=== PATIENT | male | born 1955 | race Caucasian/White ===

== ENCOUNTER → 2023-06-04 10:03 | Outpatient (REF) | payer MEDICARE, SELFPAY | LOC: HWRAD 10:03 | PROVIDERS: ATTENDING PHYSICIAN Internal Medicine Rheumatology; FAMILY PHYSICIAN Family Medicine | DX: M17.10 Unilateral primary osteoarthritis, unspecified knee (principal) | CPT/HCPCS: 73562; 73565 ==

== ENCOUNTER → 2024-05-06 06:33 | Day surgery (SDC) | payer MEDICARE, SELFPAY | LOC: GI 06:33 | PROVIDERS: ATTENDING PHYSICIAN Internal Medicine | PROC: 0DBL8ZX Excision of Transverse Colon, Via Natural or Artificial Opening Endoscopic, Diagnostic (ICD-10-PCS; 2024-05-06) | PROC: 0DBH8ZX Excision of Cecum, Via Natural or Artificial Opening Endoscopic, Diagnostic (ICD-10-PCS; 2024-05-06) | DX: Z12.11 Encounter for screening for malignant neoplasm of colon (principal); Z86.0101 Personal history of adenomatous and serrated colon polyps; K64.9 Unspecified hemorrhoids; D12.3 Benign neoplasm of transverse colon; K57.30 Diverticulosis of large intestine without perforation or abscess without bleeding | CPT/HCPCS: 45380; 88305 ==

== ENCOUNTER 2024-07-03 18:52 | Inpatient (IN) | payer MEDICARE, SELFPAY ==
[2024-07-03] VITALS (23 sets, daily range): BP systolic 72–106; BP diastolic 57–67; BMI 22.6; BMI 21.9
--- NOTE | 2024-07-03 17:30 | ED.GENMED ---
History of Present Illness
General
Chief Complaint: Chest Pain
Time Seen by Provider: 07/03/24 17:30
History of Present Illness
History of Present Illness:
69-year-old male with history of hyperlipidemia and high calcium score presenting for concern of STEMI. Patient reports he was mountain biking at 4 PM when he had acute onset of midsternal chest pain with radiation to his back. He stopped
bicycling and called the ambulance. On medics arrival, did a twelve-lead which showed a STEMI, prehospital notification. Aspirin administered and route. On arrival, patient notes persistent chest pain, 5 out of 10 and some dyspnea. Pain is
described as a dull ache. Denies fever or recent illness. Denies additional acute medical complaints.
Phy Exam
Physical Exam
Physical Exam:
General: Well-appearing, no clinical signs of dehydration, nontoxic and in no acute distress
HEENT: protecting airway
Neck: appears supple
CV: Normal heart rate, regular rhythm
Resp: No accessory muscle use, no increased work of breathing, lungs clear to auscultation bilaterally
Abd: No distention
Extremities: No deformities, no swelling
Neuro: alert, no focal neurologic deficit
: deferred
Rectal: deferred
Psych: Normal affect
Skin: Intact
Scores
Heart Score for Chest Pain Patients
STEMI patient?: Yes
Course
Orders/Labs/Results
Orders:
Orders
07/03/24 17:25
Electrocardiogram (*1) Urgent
Reason for Study: Chest Pain
Cardiac Monitoring- Treatment ONCE
EKG- Treatment ONCE
IV Insert/Care/Rem.- Treatment PRN
O2 Therapy [RESP] Urgent
Titrate/Wean O2 to maintain O2 sat greater than (%): 90
Special Instructions: Maintain sats >/=90%
Pulse Ox/spot Check [RESP] Urgent
Quantity: 1
Special Instructions: ON ROOM AIR
07/03/24 17:31
Complete Blood Count/With Diff Urgent
Comprehensive Metabolic Panel Urgent
Troponin I Urgent
07/03/24 18:28
Heparin 5,000 units .ROUTE .STK-MED ONE
Ticagrelor [Brilinta] 180 mg .ROUTE .STK-MED ONE
07/03/24 18:36
CT Chest Angio W/wo Iv Contras Stat
Comment:
Reason For Exam: Chest pain exclude dissection
07/03/24 18:45
Admit Patient As Directed
Co-Sign Provider:
Level of Care: Inpatient admission
Assign to:: ICU
Physician / Group: Dr. Camargo
Diagnosis: SCAD
Reason for Hospitalization: Chest pain and abnormal ECG
Expected length of stay greater than two midnights?: Yes
ELOS- Estimated Length of Stay in days: 3
I certify the patient meets the requirements for IP care: Yes
Code Status As Directed
Resuscitation Status: Full Code
Activity As Directed
Activity Level: Out of Bed- Ad Venecia
Activity Frequency: Ad Venecia
Printmaker Procedure As Directed
Cardiac Cath Procedure: cardiac catheterization
Notify MD As Directed
Notify physician if: immediately for chest pain or bleeding from access site(s)
Radial Artery Hemostasis Method As Directed
Instructions:: 3 mL out at 1 hour post placement of band
3 mL out at 1 1/2 hours post placement of band
3 mL out at 2 hours post placement of band
Off at 2 1/2 hours post placement of band
If any oozing or hemotoma occurs:: re-inflate band and call provider
Site Checks As Directed
Check access site for bleeding/hematoma: Yes
Comment: on arrival, Q15min x4, Q30min x2, Q1 hr x2, Q2 hr x2, Q4 hr or per
protocol
Vascular Checks As Directed
Location: distal to access site - pulse check
Frequency: Other
Comment: on arrival, Q15min x4, Q30min x2, Q1 hr x2, Q2 hr x2, Q4 hr or per protocol
Vital Signs As Directed
Frequency: Other
Additional Instructions:: on arrival, Q15min x4, Q30min x2, Q1 hr x2, Q2 hr x2, then Q4 hr or per unit
protocol
07/03/24 18:46
PRN Pain Medication Management As Directed
May give lesser potent ordered pain med per pt: Yes
preference::
Protocol:: Medication orders for pain may be administered in a
manner that supports deferring to patient preference
when the pt is:
- Requesting an ordered lesser potent pain medication.
Least to most potent pain medications are defined
as: acetaminophen < NSAID < tramadol < opioids
(morphine, oxycodone, hydromorphone).
- Requesting a lesser dose of the same medication IF
ORDERED.
- Requesting a less intrusive route of administration
if both routes are prescribed by the provider (PO <
IV).
07/03/24 18:47
DX Deep Vein Thrombosis Video Routine
07/03/24 19:43
Troponin I Q6H
07/04/24 00:45
Troponin I Q6H
07/04/24 06:00
Basic Metabolic Panel IN AM
Cardiovascular Evaluation IN AM
Complete Blood Count/No Diff IN AM
07/04/24 06:45
Troponin I Q6H
07/04/24 12:45
Troponin I Q6H
07/04/24 18:00
Enoxaparin Sodium [Lovenox] 40 mg SC QPM
Abnormal Lab Results
07/03/24 07/03/24
17:31 17:49
WBC 12.8 H 10^3/uL
(4.8-10.8)
RBC 4.63 L 10^6/uL
(4.70-6.10)
MCV 97.4 H fL
(80.0-94.0)
MCH 33.3 H pg
(27.0-31.0)
MPV 11.6 H fL
(7.4-10.4)
Abs Immat Gran (auto) 0.1 H 10^3/uL
(0-0.05)
Absolute Neuts (auto) 10.2 H 10^3/uL
(1.4-6.5)
Absolute Monos (auto) 1.0 H 10^3/uL
(0.1-0.6)
Neutrophils % 79.5 H %
(42.2-75.2)
Lymphocytes % 11.6 L %
(20.5-51.1)
BUN 33 H mg/dl
(9-20)
Glucose 109 H mg/dl
(70-99)
AST 78 H U/L
(17-59)
Troponin I 4.030 H* ng/ml
POC ACT Low Range 221 H Seconds
(116-155)
07/03/24 17:31
07/03/24 17:31
Vital Signs
Initial and Last Documented VS:
Initial Vital Signs
Temp Pulse Resp BP Pulse Ox
97.6 F 68 20 105/66 98
07/03/24 17:26 07/03/24 17:26 07/03/24 17:26 07/03/24 17:26 07/03/24 17:26
Last Documented Vital Signs
Temp Pulse Resp BP Pulse Ox
97.6 F 64 20 105/66 97
07/03/24 17:26 07/03/24 17:31 07/03/24 17:30 07/03/24 17:31 07/03/24 17:31
MDM/Problems Addressed
MDM/Problems Addressed:
69-year-old male with history of hyperlipidemia presenting to the emergency department for chest pain. Vital signs are normal.
Patient is a prehospital STEMI alert, with EKG transmitted to the emergency department, consistent with STEMI. STEMI alert subsequently called with cardiology to bedside upon patient's arrival. Patient hemodynamically stable upon arrival, EKG
repeated, consistent with STEMI, with inferior and lateral ST elevations. Patient received aspirin and route. Plan for heparin and Brilinta and cardiac catheterization. Patient to be admitted.
*EKG
Interpreted by ED Provider?: Yes
EKG Intrepretation Date: 07/03/24
EKG Intrepretation Time: 17:47
Interpretation: abnormal
Heart Rate: 73
Rate: normal
Rhythm: sinus
[place]: left axis deviation
Interval: normal interval
QRS Pattern: normal QRS
Ischemia: ST elevation
*Critical Care Note
Total Time (30-74mins, 75-104mins- exclusive of procedures): Not Applicable
ED Attending Note
-
Portions of this chart may have been created with voice recognition software.� Occasional wrong word or��sound alike� substitutions may have occurred due to the inherent limitations of voice recognition software.
Discharge Plan
Departure
Patient Disposition: Admit
Date of Disposition: 07/03/24
Time of Disposition: 17:46
Presentation/result/management discussed w/ accepting MD/DO: cardiology Teena Ragland
Condition: Critical
Discharge Problem:
ST elevation (STEMI) myocardial infarction
Interventions
Interventions:
*Risk Screen - Suicide Last Done: 07/03/24 19:31
*General Assessment Last Done: 07/03/24 17:36
*Neglect/Abuse Screening Last Done: 07/03/24 17:25
*ED- Fall Risk Assessment Last Done: 07/03/24 17:25
*ED COVID-19 Vaccine History Last Done: 07/03/24 19:31
*Nursing Disposition Last Done: 07/03/24 17:43
ED- Cardiac Assessment Last Done: 07/03/24 17:25
Discharge Date and Time
Discharge Date/Time: 07/03/24 17:45
[2024-07-03 17:38] LABS: % Basophils 0.5 % (0-2); % Eosinophils 0.2 % (0-6); % Immature Granulocytes 0.5 % (0-0.5); % Lymphocytes 11.6 % (20.5-51.1); % Monocytes 7.7 % (1.7-9.3); % Neutrophils 79.5 % (42.2-75.2); Absolute Basophils 0.1 10^3/uL (0-0.2); Absolute Immature Granulocytes 0.1 10^3/uL (0-0.05); Absolute Lymphocytes 1.5 10^3/uL (1.2-3.4); Absolute Neutrophils 10.2 10^3/uL (1.4-6.5); Hematocrit 45.1 % (39.0-52.0); Hemoglobin 15.4 g/dL (13.0-18.0); Mean Corp Hgb Conc. 34.1 g/dL (33.0-37.0); Mean Corpuscular Hgb 33.3 pg (27.0-31.0); Mean Corpuscular Volume 97.4 fL (80.0-94.0); Mean Platelet Volume 11.6 fL (7.4-10.4); Nucleated Red Blood Cells % 0 % (-); Platelet Count 161 10^3/uL (130-400); Red Blood Cell Count 4.63 10^6/uL (4.70-6.10); White Blood Cell Count 12.8 10^3/uL (4.8-10.8)
[2024-07-03 17:54] LABS: ALT (SGPT) 41 U/L (0-50); AST (SGOT) 78 U/L (17-59); Albumin 4.6 g/dl (3.5-5.0); Alkaline Phosphatase 65 U/L (38-126); Blood Urea Nitrogen 33 mg/dl (9-20); Calcium 9.9 mg/dl (8.4-10.2); Carbon Dioxide 22 mmol/L (22-30); Chloride 102 mmol/L (98-107); Estimated Creatinine Clearance 77 ml/min; Glucose 109 mg/dl (70-99); Potassium 3.8 mmol/L (3.5-5.1); Sodium 137 mmol/L (135-145); Total Bilirubin 1.1 mg/dl (0.2-1.3); Total Protein 6.9 g/dl (6.3-8.2); eGFR > 60.00
[2024-07-03 17:54] LABS: ACT-LR - POC 221 Seconds (116-155)
--- NOTE | 2024-07-03 19:02 | ITS.CL.CATH ---
Laminating Machine Offbearer - Catheterization
Cardiac Catheterization
Procedure Report:
LEFT HEART CATHETERIZATION
Date of Procedure: July 03, 2024
Referring: [facility] Emergency Department
PROCEDURES:
1. Left heart catheterization with coronary and single-plane left ventriculography
2. Right heart catheterization
INDICATION: This is a 69-year-old gentleman with a past medical history notable for an elevated coronary calcium score and connective tissue disorder. He is an avid mountain biker and had been riding his mountain bike earlier today when he noticed
the onset of substernal chest tightness leading him to seek medical attention. His prehospital electrocardiogram was notable for 3 to 4 mm of inferior and anterolateral ST segment elevation and a prehospital STEMI alert was activated. Upon arrival
the patient continued to experience chest tightness graded 5-8/10 in intensity. He received a 180 mg loading dose of ticagrelor as well as aspirin 324 mg on top of his 81 mg daily dose of aspirin. He is now referred for emergent coronary
angiography.
ACCESS: Right radial artery, 6 Marshall[place] sheath
HEMODYNAMICS : (mmHg)
AO (s/d) : 83/46, 61
LV (s/d) : 85/16
LVEDP : 23
CORONARY FINDINGS
DOMINANCE: Right
LEFT MAIN: Hazy 50% distal left main stenosis
LEFT ANTERIOR DESCENDING: The LAD arises normally from the left main and runs in the anterior interventricular groove. The LAD has a tandem 50 and 60% stenoses in the mid LAD just proximal and just distal to a large first septal lining cementer.
Several small diagonal branches arise from the mid LAD in the apical LAD tapers to a very small caliber vessel. There is SILVERIO-3 flow into the distal vessel.
CIRCUMFLEX: The circumflex is a medium caliber nondominant vessel giving rise to a very small OM1 and terminates in a small to medium caliber OM 2 and OM 3. There is SILVERIO-3 flow into the distal vessel.
RIGHT CORONARY ARTERY: The right coronary artery is a large-caliber dominant vessel that has a 30% mid stenosis. The PDA has an unusual hinge point in the mid vessel where a 50% stenosis is noted. Distally the PDA tapers to a very small caliber
vessel with possible angiographic appearance suggestive of possible type II SCAD/spontaneous coronary artery dissection. The posterolateral branch is large and has minor irregularities.
VENTRICULOGRAPHY: Left ventriculography is performed in an BERG projection. The digital single-plane left ventricular ejection fraction is estimated at 60% with possible inferoapical hypokinesis
RIGHT HEART CATHETERIZATION: Right heart catheterization was performed at conclusion of the diagnostic angiogram because patient complaining of severe shortness of breath.
Hemodynamics (mmHg):
RA (m) : 16
RV (s/d,m) : 53/16, 19
PA (s/d, m) : 32/24, 27
PCWP (m) : 25
AO (s/d) : 96/55, 70
Cardiac Output : 3.75 L/min and Cardiac Index : 2.18 L/min/m-2
SEDATION: 45 minutes of procedural sedation was utilized. An independent manager medical writing was present to assist with and help manage the patient's level of consciousness and physiologic status.
RADIATION SUMMARY: Fluoro Time (min): 5.6, Dose (mGy): 242, DAP (Gy.cm2) : 20.5
Closure Device: TR band and manual pressure over right femoral venous access
CONCLUSIONS
1. Electrocardiogram suggestive of an evolving inferior and anterolateral wall myocardial infarction although angiographically it is difficult to define a clear epicardial coronary vessel occlusion. The PDA tapers distally with an angiographic
appearance consistent with type II SCAD which may be the etiology of his chest discomfort
2. Preserved LV systolic function with inferoapical hypokinesis
RECOMMENDATIONS
1. Patient will be admitted to the ICU following a stat CT scan of the chest to exclude aortic dissection given ongoing chest pain
2. If the etiology of his symptoms are related to scad then conservative management is recommended. Continue aspirin. Statin therapy is quite reasonable. Low-dose beta-estrella with gradual titration as heart rate and blood pressure tolerates
3. We will continue to trend serial troponin levels and electrocardiograms
4. Will obtain a stat echocardiogram
5. ABG on room air
6. Morphine if needed for chest discomfort.
Copy to: Dr. Ramírez Hillman
[2024-07-03] MEDS: MORPHINE SULFATE 1 MG IV (19:40)
[2024-07-03 20:01] LABS: INR 1.96; PT 22.9 Sec (11.4-14.6)
[2024-07-03] MEDS: ZOFRAN 4 MG IV (20:16)
[2024-07-03 20:17] LABS: APTT > 200 Sec (23.4-35.0)
--- NOTE | 2024-07-03 20:35 | W.PN.CARDCBS ---
Today's Communication / Plan
-
Persistent ST elevation of unclear etiology with unremarkable coronary angiogram
Echocardiogram with severe LVH and mild inferolateral hypokinesis.? Possible infiltrative cardiomyopathy
Continue supportive care with aspirin, morphine, and atorvastatin.
Would hold off on IV diuresis for now. If blood pressure becomes marginal would add Levophed.
Impression / Plan
-
Assess:
ST elevation myocardial infarction with persistent inferolateral ST elevation
Cardiac cath with nonobstructive CAD
Severe concentric left ventricular hypertrophy with possible infiltrative pattern
Mild inferior inferolateral hypokinesis
Elevated coronary calcium score
Hyperlipidemia
Hypertension
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
Diffuse lipoma
Echocardiogram 07/03/2024, EF 45 to 50%, inferior inferolateral mild hypokinesis, severe concentric LVH
CTA of the chest 07/03/24: No aortic dissection
PLan:
Cardiac cath results were reviewed with nonobstructive CAD and mild pulmonary hypertension with pulmonary capillary wedge pressure of 25.
His blood pressure is currently borderline and he has persistent chest pain of unclear etiology. CTA of chest also reveals no aortic dissection.
His echocardiogram has severe LVH possibly consistent with an infiltrative cardiomyopathy. ? scleroderma/amyloidosis
Unfortunately his ECG continues to have persistent inferolateral ST elevation. It remains unclear the etiology of his ST elevation.? Possible global ischemia
Will treat with morphine 2 mg IV every 4 as needed
Would hold off on IV diuresis for now.
Blood pressure is currently marginal. If this worsens would add Levophed.
Will continue supportive care for now. Discussed at length with nursing and family.
Likely will need cardiac MRI to further evaluate severe LVH
Continue aspirin, and atorvastatin. Hold Brilinta for now.
Will trend troponins. Expect them to continue to rise.
CC time 45 min
Progress Note - Bacteriologist Dairy
Subjective
Date of Service: July 03, 2024
Patient evaluated in ICU with continued chest pains. He states he has a 3 out of 10 chest discomfort which sometimes radiates to his back. He also has shortness of breath. He denies any sweats nausea orthopnea.
Objective
Labs:
07/03/24 17:31
07/03/24 17:
Labs
Hgb 15.4 g/dL (13.0-18.0) 07/03/24:
Hct 45.1 % (39.0-52.0) 07/03/24 17:
Plt Count 161 10^3/uL (130-400) 07/03/24 17:
PT 22.9 Sec (11.4-14.6) H 07/03/24 19:43
INR 1.96 07/03/24 19:43
APTT > 200 Sec (23.4-35.0) H* 07/03/24 19:43
Sodium 137 mmol/L (135-145) 07/03/24:
Potassium 3.8 mmol/L (3.5-5.1) 07/03/24:
BUN 33 mg/dl (9-20) H 07/03/24:
Creatinine 0.8 mg/dL (0.7-1.3) 07/03/24:
Glucose 109 mg/dl (70-99) H 07/03/24:
Troponins
07/03/24 07/03/24
: 19:43
Troponin I 4.030 H* 25.300 H* D
Vital Signs and I&O:
Vital Signs
Temp Pulse Resp BP Pulse Ox
97.7 F 64 20 105/66 93
07/03/24 20:18 07/03/24 17:31 07/03/24 17:30 07/03/24 17:07/03/24 20:18
Vital Signs
Temp Pulse Resp BP Pulse Ox
97.7 F 64 20 105/66 93
07/03/24 20:18 07/03/24 17:31 07/03/24 17:30 07/03/24 17:31 07/03/24 20:18
Physical Exam
Physical Exam
GEN: No distress, awake, anxious
HEENT: supple, anicteric, mmm
LUNGS: CTA, no wheezes/rales
CV: Reg, S1/S2, 1/6 syst LSB, no gallop
ABD: soft, BS+, NT/ND
EXT: No edema
NEURO: Gross non-focal
SKIN: No rash
[2024-07-03 20:38] LABS: B.E. -6.9 mmol/L; HCO3 16.6 mmol/L (21-28); O2 Saturation % 98.1 % (94-98); PCO2 28 mmHg (35-48); PO2 179 mmHg (83-108); pH 7.38 (7.35-7.45)
[2024-07-03] MEDS: PEPCID 20 MG IV (20:48)
[2024-07-03] MEDS: NSS (PRESERVATIVE FREE) 8 ML IV (20:49)
[2024-07-03 21:05] LABS: Glucose - Point of Care 138 mg/dl (70-99)
--- NOTE | 2024-07-03 21:31 | PTCARENOTE ---
Received pt, pt pulled over to our bed. Pt is AAOx3. EKG provided when pt got to the unit, EKG reading STEMI, sinus rhythm w/ PACS. Received pt on RA O2 95%, pt states he is SOB and orthopnea. Pt placed on 5L NC O2 sat 97%, lungs clear. Pt c/o
indigestion and nausea, Zofran and Pepcid given (see MAR). Urinal at bedside. Right femoral 4x4 in place, dressing c/d/i, slight swelling, soft, no hematoma Dr. Castaneda assessed. Right radial TR band in place, 1 ml taken out by previous RN, site
intact/ecchymotic (see worklist). Pt c/o 5/10 chest pain and in between his shoulder blades, pain is dull. 1 mg Morphine given (see MAR). Family at bedside. CHG bath provided. Call slaas in reach. Safe environment maintained.
--- NOTE | 2024-07-03 21:40 | HPS.HSE ---
Family Physician
-
Family Physician: NO INTERVIEW UNKNOWN
Chief Complaint
-
chest pain
History of Present Illness
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 He was mountain biking at 4 PM when he
had acute onset of midsternal chest pain described as pressure with radiation to his back. He stopped cycling and called the ambulance. On medics twelve-lead EKG showed changes concerning for inferior lateral STEMI prompting prehospital
notification. Aspirin was administered and route. On arrival patient noted persistent chest pain with some dyspnea. Pain was described as dull ache.
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 Stat CTA chest was ordered to rule out aortic dissection.
Patient used to drink alcohol and was a former smoker but quit years ago.
Medical History
Past Medical History
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
Past Surgical History: Reports None
Social History
Tobacco: Former Smoker
Alcohol: Former
Drug: None
Family History
Family History: Not pertinent
Allergies / Home Medications
Allergies reflects when Allergies were last updated in [employer].
Home Medications with original date entered in [employer]
Allergy/Medication List:
Allergies
Allergy/AdvReac Type Severity Reaction Status Date / Time
erythromycin base Allergy brain Verified 07/03/24 17:34
[Erythromycin Base] swelling
Home Medications
Cbd 20 mg PO HS 07/03/24
Thc 10 mg PO HS 07/03/24
albuterol sulfate 90 mcg/actuation aerosol inhaler 2 puff inhalation R DAILYPRN PRN before mountain biking 07/03/24
aspirin 81 mg tablet,delayed release 81 mg PO DAILY 07/03/24
atorvastatin 80 mg tablet 80 mg PO DAILY 07/03/24
calcium carbonate (Tums) 200 mg PO PC 07/03/24
famotidine 20 mg tablet 20 mg PO BID 07/03/24
glucosamine 375 br-yywxwluyn-nde no1 500 mg-C 15 mg-rome 0.5 mg tablet (Cdxpofukghy-Efkzxwbkvdj-MKR Complex) 1 tab PO DAILY 07/03/24
magnesium oxide 200 mg PO DAILY 07/03/24
simethicone 80 mg chewable tablet 80 mg PO PC 07/03/24
sulfasalazine 500 mg tablet 1 g PO BID 07/03/24
tadalafil 20 mg tablet 20 mg PO DAILY 07/03/24
testosterone cypionate 200 mg/mL intramuscular oil 100 mg IM TUFR 07/03/24
therapeutic multivitamin 1 tab PO DAILY 07/03/24
turmeric 400 mg capsule 400 mg PO DAILY 07/03/24
zolpidem 5 mg tablet 5 mg PO HSPRN PRN sleep 07/03/24
Review of Systems
-
History Source: Patient
A 12 point ROS was completed and negative except as noted: Yes
Constitutional: Reports No Symptoms
EENT: Reports No Symptoms
Respiratory: Reports No Symptoms
Cardiac: Reports No Symptoms
Abdomen/GI: Reports No Symptoms
: Reports No Symptoms
Musculoskeletal: Reports No Symptoms
Skin: Reports No Symptoms
Neurological: Reports No Symptoms
Endocrine: Reports No Symptoms
Hematologic/Lymphatic: Reports No Symptoms
Psych: Reports No Symptoms
Physical Exam
Vital Signs
Vital Signs
Temp Pulse Resp BP Pulse Ox
97.7 F 65 12 87/62 94
07/03/24 20:18 07/03/24 21:15 07/03/24 21:15 07/03/24 21:15 07/03/24 21:22
Physical Exam
General: Well Developed, Well Nourished and No Apparent Distress
HEENT: NormoCephalic, Moist mucous membranes and Atraumatic
Respiratory: Clear
Cardiac: S1/S2 and Regular Rhythm; No Murmur or Rub
GI: Soft, Non Tender, Non Distended and Normal Bowel Sounds; No Organomegaly
Rectal: Deferred by Provider
Musculoskeletal: No Clubbing, No Cyanosis and No Edema
Skin: No Rash
Neuro: Nonfocal/grossly intact
Laboratory Results
-
07/03/24 17:31
07/03/24 17:31
Laboratory Results
PT 22.9 Sec (11.4-14.6) H 07/03/24 19:43
INR 1.96 07/03/24 19:43
APTT > 200 Sec (23.4-35.0) H* 07/03/24 19:43
pH 7.38 (7.35-7.45) 07/03/24 20:30
pCO2 28 mmHg (35-48) L 07/03/24 20:30
pO2 179 mmHg (83-108) H 07/03/24 20:30
HCO3 16.6 mmol/L (21-28) L 07/03/24 20:30
Total Bilirubin 1.1 mg/dl (0.2-1.3) 07/03/24 17:31
AST 78 U/L (17-59) H 07/03/24 17:31
ALT 41 U/L (0-50) 07/03/24 17:31
Alkaline Phosphatase 65 U/L (38-126) 07/03/24 17:31
Troponin I 25.300 ng/ml H* D 07/03/24 19:43
Data Reviewed
-
Lab Data: Labs Reviewed by me
Old Records: Reviewed
Impression/Plan
-
IMPRESSION:
PLAN:
# Chest pain suggestive of spontaneous coronary artery dissection of PDA
-EKG showed ST elevations in inferior lateral leads
-Troponin of 4
- Presentation was consistent with inferior lateral STEMI however on catheterization there is no coronary vessel occlusion. PDA tapers distally with an angiographic appearance consistent with type II SCAD
- Interventional cardiology recommending medical/conservative management for now
- Trend troponins
- CT angio of chest without dissection, circumferential wall thickening of the left ventricle
- Stat echocardiogram pending
- ABG pending due to shortness of breath
- Continue aspirin and statin
- Patient received Brilinta load in ER
- Morphine for pain, cannot use nitroglycerin due to hypotension
- A1c and lipid panel pending
# Hypotension unclear etiology
- Small amount of IV fluid can be given
- Levophed if needed
Connective tissue disorder/lupus scleroderma
- Continue sulfasalazine
Hyperlipidemia
GERD
- Continue Pepcid
BPH
Osteoarthritis
Erectile dysfunction
- Hold tadalafil, testosterone
Full code
DVT prophylaxis�Lovenox
Cardiac diet
[2024-07-03] MEDS: AMBIEN 5 MG PO (22:51)
[2024-07-04] VITALS (15 sets, daily range): BP systolic 59–99; BP diastolic 11–64
[2024-07-04] MEDS: MORPHINE SULFATE 1 MG IV (00:05)
--- NOTE | 2024-07-04 00:25 | PTCARENOTE ---
Systems reviewed, no new changes in assessment. Morphine given (see MAR). Pt with no urine output this shift, pt bladder scanned for 379 ml. Son at bedside. Safe environment maintained. Call salas in reach.
[2024-07-04] MEDS: LEVOPHED 250 IV (01:00)
[2024-07-04] MEDS: TUMS CHEWABLE TABLET 400 MG PO (01:02)
--- NOTE | 2024-07-04 01:21 | W.PN.UPDATE ---
Update Note
Progress Note Update
0052 Notified that patient is having new EKG changes. 12 lead EKG done: showing RBBB with ventricular bigeminy. Labs are being performed currently. �Troponins continue to rise.�Patient has been describing consistent pain that he's been having since
admission. Gave additional dose of morphine dose and Tums per patient request for indigestion.�
--- NOTE | 2024-07-04 01:22 | PTCARENOTE ---
ICU SPINNING MACHINE OPERATOR notified about pts BP being low. Wants MAP >65, levo gtt order for MAP >65. Levo gtt infusing MAP 63.
[2024-07-04 01:29] LABS: Hemoglobin 16.6 g/dL (13.0-18.0); Mean Corp Hgb Conc. 33.2 g/dL (33.0-37.0); Mean Corpuscular Hgb 33.8 pg (27.0-31.0); Mean Corpuscular Volume 101.8 fL (80.0-94.0); Mean Platelet Volume 11.7 fL (7.4-10.4); Platelet Count 152 10^3/uL (130-400); Red Blood Cell Count 4.91 10^6/uL (4.70-6.10); Red Cell Dist. Width 14.3 % (11.5-14.5); White Blood Cell Count 21.3 10^3/uL (4.8-10.8)
--- NOTE | 2024-07-04 01:29 | PTCARENOTE ---
Pt son states there is something wrong w/ the pt. Went in to see the pt, pt clammy, restless in bed, looks cyanotic, pt felt SOB. EKG provided. ICU WIRER MAINTENANCE at bedside, states to get AM labs. AM labs provided. Pt pulled up in bed and sitting up, states
his breathing feels better. Pt asking for Tums, ordered and given (see MAR).
[2024-07-04 01:55] LABS: Magnesium 2.8 mg/dl (1.6-2.3)
[2024-07-04 01:59] LABS: Blood Urea Nitrogen 34 mg/dl (9-20); Calcium 9.5 mg/dl (8.4-10.2); Carbon Dioxide 13 mmol/L (22-30); Chloride 102 mmol/L (98-107); Estimated Creatinine Clearance 43 ml/min; Glucose 225 mg/dl (70-99); HDL Cholesterol 63 mg/dl; LDL Cholesterol, Calculated 56 mg/dl; Potassium 4.4 mmol/L (3.5-5.1); Sodium 140 mmol/L (135-145); Total Cholesterol 136 mg/dl (50-199); Triglyceride 87 mg/dl (10-149); Very Low Density Lipoprotein 17 mg/dl (0-30); eGFR 54.07
--- NOTE | 2024-07-04 02:16 | PTCARENOTE ---
Pt with a run of vtach broke to sinus tach, ICU BACK HANGER notified, strip in the chart.
[2024-07-04] MEDS: LR 250 IV (02:36)
[2024-07-04 02:57] LABS: Hepatitis C Antibody Negative (Negative)
--- NOTE | 2024-07-04 02:58 | PTCARENOTE ---
ICU MEMBERSHIP SOLICITOR notified about pt low temp, rectal temp provided. BC ordered.
[2024-07-04 03:20] LABS: C-Reactive Protein < 5.00 mg/L (0.0-10.00)
[2024-07-04 03:26] LABS: Complement C3 75 mg/dl (88-165)
[2024-07-04 03:53] LABS: Ferritin 83.6 ng/ml (17.9-464.0)
--- NOTE | 2024-07-04 04:00 | W.PN.ANESINT ---
Anesthesia Intubation Note
- Intubation Note
Intubation Note:
Diagnosis: Cardiac Arrest
Blade: Glidescope
Tube Size: 8.0
Depth: 23 cm @lip
Side Taped: right
Drugs Used: none, pt unrespponsive - CPR was in progress upon my arrival
Grade View: 1
EtCO2 Present: yes
Atraumatic: yes
Attempts: 1
Insertion Start and Stop Time: 03:23 -03:24
SaO2 Pre: none registering
SaO2 Post: 70 with CPR
Glidescope Used: yes
Other Airway Adjustments: no
Pre-Oxygenated: CPR was in progress upon my arrival
Portable Chest X-Ray: yes
RSI: yes
Suctioned: no
Bilateral Breath Sounds Confirmed: uyes
Vent Settings:
Settings per ___Attending Physician
[2024-07-04 04:09] LABS: B.E. -11.8 mmol/L; Ionized Calcium 1.25 mMOL/L (1.15-1.33); O2 Saturation % 97.9 % (94-98); PCO2 29 mmHg (35-48); PO2 166 mmHg (83-108); Sodium 145 mMOL/L (136-145); pH 7.28 (7.35-7.45)
[2024-07-04 04:11] LABS: O2 Therapy 40%
[2024-07-04 04:12] LABS: HCO3 13.6 mmol/L (21-28)
[2024-07-04 04:16] LABS: Hematocrit 36.1 % (39.0-52.0); Hemoglobin 12.1 g/dL (13.0-18.0); Mean Corp Hgb Conc. 33.5 g/dL (33.0-37.0); Mean Corpuscular Hgb 33.9 pg (27.0-31.0); Mean Corpuscular Volume 101.1 fL (80.0-94.0); Red Blood Cell Count 3.57 10^6/uL (4.70-6.10); Red Cell Dist. Width 14.3 % (11.5-14.5)
[2024-07-04 04:19] LABS: Free T4 1.44 ng/dl (0.78-2.19)
--- NOTE | 2024-07-04 04:26 | W.PN.UPDATE ---
Update Note
Progress Note Update
Attending addendum: Called at 03:52 that Mr. Wolf was coding. I came to bedside and it was reported that the patient received multiple rounds of epinephrine and HCO3. Ongoing CPR. PEA present. Shocks administered multiple times for possible
fine Vfib. No return of rhythm. Earlier in this code they would obtain a rhythm but no perfusion. Sonosite probe placed on chest. Massive LVH with cardiac standstill. Family was present in room and further resuscitation efforts were terminated.
[2024-07-04 04:31] LABS: Platelet Count 78 10^3/uL (130-400)
[2024-07-04 04:32] LABS: Mean Platelet Volume 12.1 fL (7.4-10.4)
--- NOTE | 2024-07-04 04:54 | W.PN.UPDATE ---
Update Note
Progress Note Update
Procedure Note: Arterial Line�
� Right Wrist Arrow 20 (05/20)�
Diagnosis:��Cardiomyopathy
IV Line Comments: Uneventful Procedure�
Devang's test completed pre-procedure: Yes�
A-Line Comments: Sterile technique as per standard protocol, Ultrasound guided insertion�
Functioning A-line in situ: Yes�
A-line Insertion Start Time:0305��
A-line in at:��0310
[2024-07-04 04:58] LABS: Erythrocyte Sed Rate 1 mm/hour (0-20)
--- NOTE | 2024-07-04 05:17 | W.PN.DEATH ---
Pronouncement of
-
Called to see patient to pronounce.
No spontaneous heart tones or respirations noted.
Patient not responsive to verbal stimuli.
Patient is pronounced .
Time of : 04:18
Date of : 07/04/24
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
Family Notified: Yes
--- NOTE | 2024-07-04 05:30 | CHAP ---
Emotional and spiritual support provided. End of life prayers in the Adventism tradition prayed. Prayer blanket given. Will follow through the morning as needed.
--- NOTE | 2024-07-04 06:07 | PTCARENOTE ---
Unable to obtain a pulse ox. Maira placed by ICU CHANGE DIRECTOR, ABG order placed. Unable to receive ABG due to pt being very restless in bed, unable to catch his breath, on 6L NC. Pt was cyanotic, and went unresponsive. CHANGE DIRECTOR at bedside decision to intubate.
Anesthesia called. CPR started. Code 9 called (see code 9 worklist). MDs at bedside. Son at bedside, rest of the family being called in. Time of was called at 0418.
--- NOTE | 2024-07-04 06:55 | W.PN.UPDATE ---
Update Note
Progress Note Update
0130. Patient started on Levophed for declining hemodynamics.�
0245. Discuss case with Dr. Abreu, updated�that patient is now requiring levophed for hypotensive. In addition, patient now hypothermic and a bump WBC, concern for sepsis. 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
Also, ordered blood cultures, and plan to start antibiotics after cultures. Finally, ordered�bicarb drip for decreasing bicarbonate. �
0305 Difficulty drawing labs. A line placed. �
0322. Patient became significantly agitate and trying to get�of bed. We tried to redirect the patient, and he became unresponsive and Velvet went flat. Code called, CPR initiated at 3:22. ACLS was performed till 417. Multiple rounds of EPI,
bicarbonate, calcium given (Refer to code sheet). �PEA arrest never sustained substantial profusion. Also, Patient had periods of fine VT shocked times * 3 409 Doctor Obie at bedside, echo showed cardiac standstill. Patient pronounced at 417. �
Family at bedside during code.
[2024-07-04 09:19] LABS: Glycohemoglobin (HgbA1c) 4.5 % (4.0-5.6)
--- NOTE | 2024-07-04 12:29 | PTCARENOTE ---
post portem care provided, lines removed. pt picked up by family's chosen home from the bedside. Erica and son Hakan aware.
[2024-07-04 14:25] LABS: Rheumatoid Agglutinin Less Than 10 IU (<10 IU)
--- NOTE | 2024-07-05 21:07 | W.DCSUMMARY ---
Discharge Summary
Discharge Data
Date of Admission: 07/03/24
Date of Discharge: 07/04/24
-
Pending Results: No
Hospital Course
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 He was found to have evidence
of inferior lateral STEMI on EKG and taken to the hospital. He was taken to catheterization lab and was found to have spontaneous coronary artery dissection of PDA. He later became hypotensive requiring pressors. Stat echocardiogram showed
evidence of infiltrative cardiomyopathy. Patient later had new EKG changes and ventricular bigeminy. Patient had PEA cardiac arrest and CPR and multiple rounds of epinephrine were given as well as 3 shocks without success. Time of was 417.
Discharge Plan
-
Patient Disposition:
Date/Time
Date/Time: 07/04/24 04:18
Discharge Date and Time
Discharge Date/Time: 07/04/24 04:18
Print Language: BAHRAINI
== END 2024-07-04 04:18 | disposition expired ==
LOC: ICU 18:52
PROVIDERS: Internal Medicine Critical Care Medicine; Nurse Practitioner Primary Care; ADMITTING PHYSICIAN Internal Medicine Interventional Cardiology; EMERGENCY PHYSICIAN Student in an Organized Health Care Education/Training Program
PROC: 4A023N8 Measurement of Cardiac Sampling and Pressure, Bilateral, Percutaneous Approach (ICD-10-PCS; 2024-07-03)
PROC: B2111ZZ Fluoroscopy of Multiple Coronary Arteries using Low Osmolar Contrast (ICD-10-PCS; 2024-07-03)
PROC: B2151ZZ Fluoroscopy of Left Heart using Low Osmolar Contrast (ICD-10-PCS; 2024-07-03)
PROC: 0BH17EZ Insertion of Endotracheal Airway into Trachea, Via Natural or Artificial Opening (ICD-10-PCS; 2024-07-04)
PROC: 5A12012 Performance of Cardiac Output, Single, Manual (ICD-10-PCS; 2024-07-04)
DX: I21.19 ST elevation (STEMI) myocardial infarction involving other coronary artery of inferior wall (principal); I25.42 Coronary artery dissection; I42.8 Other cardiomyopathies; I47.20 Ventricular tachycardia, unspecified; E78.5 Hyperlipidemia, unspecified; M34.9 Systemic sclerosis, unspecified; M32.9 Systemic lupus erythematosus, unspecified; K21.9 Gastro-esophageal reflux disease without esophagitis; I95.9 Hypotension, unspecified; I10 Essential (primary) hypertension; I25.10 Atherosclerotic heart disease of native coronary artery without angina pectoris; N40.0 Benign prostatic hyperplasia without lower urinary tract symptoms; I46.9 Cardiac arrest, cause unspecified; I51.7 Cardiomegaly; M19.90 Unspecified osteoarthritis, unspecified site; I27.20 Pulmonary hypertension, unspecified; N52.9 Male erectile dysfunction, unspecified; K58.9 Irritable bowel syndrome, unspecified; R45.1 Restlessness and agitation; R68.0 Hypothermia, not associated with low environmental temperature; R00.8 Other abnormalities of heart beat; D72.829 Elevated white blood cell count, unspecified; K30 Functional dyspepsia; Z87.891 Personal history of nicotine dependence; Z88.1 Allergy status to other antibiotic agents; Z79.82 Long term (current) use of aspirin; Z82.5 Family history of asthma and other chronic lower respiratory diseases; Z82.49 Family history of ischemic heart disease and other diseases of the circulatory system
CPT/HCPCS: 36600; 71275; 80048; 80053; 80061; 82330; 82728; 82805; 82962; 83036; 83735; 84132; 84302; 84439; 84443; 84484; 85025; 85027; 85347; 85610; 85652; 85730; 86140; 86160; 86430; 86803; 93005; 93306; 93460; 96374; 99152; 99153; 99285; C1887; C1894; Q9967